=== PATIENT | female | born 1950 | race Caucasian/White ===

== ENCOUNTER → 2017-07-13 | Outpatient (CLI) | payer MEDICARE, OTHER | END | disposition home or self-care (01) | LOC: KCIC MRI 10:31 | DX: M48.061 Spinal stenosis, lumbar region without neurogenic claudication (principal); M51.26 Other intervertebral disc displacement, lumbar region | CPT/HCPCS: 72148 ==

== ENCOUNTER → 2017-12-24 | Outpatient (CLI) | payer MEDICARE, OTHER ==
--- NOTE | 2017-12-24 15:25 | RAD ---
CT CHEST WO CONTRAST dated 12/24/2017 10:56 AM Indication:..SHORTNESS OF BREATH, HX OF COPD
NO PRIORS. Comparison: No comparison is available. Technique: Contiguous axial imaging of the chest performed without the administration of intravenous contrast. One or more of the following individualized dose reduction techniques were utilized for this examination: 1. Automated exposure control 2. Adjustment of the mA and/or kV according to patient size 3. Use of iterative reconstruction technique Findings: Heart size within normal limits. No pericardial effusion. Scattered coronary calcifications. No mediastinal, hilar or axillary lymphadenopathy. Thyroid gland unremarkable. Central airways are patent. Mild diffuse bronchial wall thickening. There is mild emphysema. Minimal linear scar or atelectasis in the lingula and right middle lobe. No consolidation or pleural effusion. No pneumothorax. Linear density at the posterior lateral left base, likely scar or atelectasis. There are some vague groundglass densities along the bronchovascular bundles bilaterally. Limited images of the upper abdomen are unremarkable. No significant bony abnormality. Multilevel spondylosis. IMPRESSION: 1. Vague patchy groundglass opacities along the bronchovascular bundles both lungs, nonspecific. This could represent acute or subacute bronchial inflammatory process. 2. Mild emphysema. 3. Coronary artery calcifications. Electronically signed by: Estevan Frank MD (12/24/2017 3:22 PM) [id number]
== END | disposition home or self-care (01) ==
LOC: CT 10:41
PROVIDERS: ATTEND Internal Medicine Pulmonary Disease
DX: J43.8 Other emphysema (principal); I25.10 Atherosclerotic heart disease of native coronary artery without angina pectoris; M47.894 Other spondylosis, thoracic region
CPT/HCPCS: 71250

== ENCOUNTER → 2017-12-28 | Outpatient (CLI) | payer MEDICARE, OTHER ==
[~2017-12-28] MED LIST: ATOR20TA58 PO; ESCITALOPRAM OX10 MG PO; FLUT1BLS3 IH; LISI1TAB3 PO; PROAIR HFA8.5 GM INH
--- NOTE | 2017-12-29 11:03 | SLEEP ---
DATE OF STUDY: 12/28/2017 ATTENDING PHYSICIAN: Dr. Tra Sharif. REFERRING PHYSICIAN: Dr. Madden. The patient is a 67-year-old who weighs 210 pounds with a BMI of 36. The patient's Hubbard score was 11. The patient underwent sleep study at [facility]. During the night study, the patient spent 412 minutes in bed and slept for 330 minutes with a sleep efficiency of 80%. Sleep latency was 18 minutes with a REM latency of 118 minutes. Overall, sleep architecture showed normal stage 1 sleep, increased stage 2 sleep, normal slow wave and reduced REM sleep. During the night study, the patient had no obstructive apneas, no mixed or central apneas and 5 hypopneas. The patient's apnea hypopnea index was only 1 per hour, supine index 2 per hour, REM index of 11 per hour. EKG monitoring revealed normal sinus rhythm, average heart rate was 78 beats per minute, no sustained arrhythmias were observed. PLMS were seen at index of 5 per hour and 3 per hour caused EEG arousals. Nocturnal oximetry study revealed a mean oxygen saturation of 90%, the lowest of 84%, 93% of time oxygen saturation remained between 80% and 89%. This pattern was suggesting hypoventilation. Due to low AHI, the patient did not meet the split night criteria for CPAP initiation. IMPRESSION: 1. No clinically significant sleep disordered breathing. The patient's AHI for the entire night was 1 per hour. 2. Mild sustained nocturnal hypoxia suggesting hypoventilation. 3. No clinically significant periodic limb movements. RECOMMENDATIONS: 1. The patient did not meet the split night criteria for CPAP initiation due to very low AHI. 2. The patient would benefit from 1 liter of oxygen at nighttime. 3. If clinical suspicion for other disorders such as narcolepsy or idiopathic hypersomnia is high, then consider doing multiple sleep latency tests. 4. Weight loss is advised. 5. Avoid LPN CARE MANAGER depressants. 6. Caution regarding driving until the patient's hypersomnia is resolved. EDGAR MCCONNELL MD DR: BRUNILDA/zack JOB#: [id number] / [id number]
== END | disposition home or self-care (01) ==
LOC: SLPLAB 18:20
PROVIDERS: ATTEND Internal Medicine Pulmonary Disease
DX: G47.34 Idiopathic sleep related nonobstructive alveolar hypoventilation (principal)
CPT/HCPCS: 95810

== ENCOUNTER 2018-02-04 07:49 | Outpatient (CLI) | payer MEDICARE, OTHER ==
[~2018-02-04] VITALS: Ht 162.6 cm; Wt 98.9 kg
[2018-02-04] VITALS (11 sets, daily range): BP systolic 104–138; BP diastolic 53–70
[2018-02-04 08:20] LABS: HEMATOCRIT 40.1 % (36.0-47.0); RED BLOOD COUNT 4.23 x10^6/uL (3.50-5.40); RED CELL DISTRIBUTION WIDTH 12.8 % (11.5-14.5)
[2018-02-04 08:30] LABS: PROTHROMBIN TIME PATIENT 12.8 SEC (11.7-14.0)
[2018-02-04 08:41] LABS: CALCIUM 9.2 mg/dL (8.5-10.1); CREATININE 1.2 mg/dL (0.6-1.0); GFR 44.9
[2018-02-04] MEDS ORDERED: LIDOCAINE 1% PF 2 ML VIAL. ONE (10:48)
[2018-02-04] MEDS ORDERED: IODIXANOL 320 MG/ML 100 ML VIAL. ONE (10:48)
[2018-02-04] MEDS ORDERED: fentaNYL PF VIAL 100 MCG/2 ML VIAL ONE (10:53)
[2018-02-04] MEDS ORDERED: VERAPAMIL 5 MG/2 ML VIAL. ONE (10:53)
[2018-02-04] MEDS ORDERED: HEPARIN for IV BOLUS 10,000 UNIT/10 ML VIAL. ONE (10:53)
[2018-02-04] MEDS ORDERED: MIDAZOLAM HCL/PF 2 MG/2 ML VIAL. ONE (10:53)
[2018-02-04] MEDS ORDERED: NITROGLYCERIN 200 MCG/2 ML SYRINGE FOR CATH/VASC LAB. ONE (10:54)
[2018-02-04] MEDS ORDERED: VERAPAMIL 5 MG/2 ML VIAL. IART ONE (11:15)
[2018-02-04] MEDS ORDERED: MIDAZOLAM HCL/PF 2 MG/2 ML VIAL. IV ONE (11:15)
[2018-02-04] MEDS ORDERED: NITROGLYCERIN 200 MCG/2 ML SYRINGE FOR CATH/VASC LAB. IART ONE (11:15)
[2018-02-04] MEDS ORDERED: fentaNYL PF VIAL 100 MCG/2 ML VIAL IV ONE (11:15)
[2018-02-04] MEDS ORDERED: LIDOCAINE 1% PF 2 ML VIAL. INJ ONE (11:15)
[2018-02-04] MEDS ORDERED: IODIXANOL 320 MG/ML 100 ML VIAL. IART ONE (11:15)
[2018-02-04] MEDS ORDERED: HEPARIN for IV BOLUS 10,000 UNIT/10 ML VIAL. IART ONE (11:15)
--- NOTE | 2018-02-04 11:59 | CARD ---
MR#: [id number] Date of Study: 02/04/2018 Ordering Physician: STACIE ANDREWS, Referring Physician: STACIE ANDREWS Tech: RT Cassie (R) APPROVED REPORT Technologist: RT Cassie (R) Nurse: Prachi Malik RN Procedure(s) performed: Left heart catheterization, selective coronary angiography and left ventricul ography via right transradial approach Sedation Time: 25 Minutes INDICATION The indication(s) include : Dyspnea on exertion and positive stress test. PROCEDURE NARRATIVE After explaining the risks, benefits and alternative options, informed consent was obtained from josue ent. Patient was brought to the cardiac Lithograph Printer and right wrist was prepped and draped in the usual fashion after confirming a positive modified Sebastian's test. Arterial access was obtained in the righ t radial artery and a 6 Bruneian sheath was inserted. 6 Bruneian Sunil catheter was used to perform john ective angiography of the left and right coronary arteries. 6 Bruneian pigtail catheter was used to pe rform left ventriculography. Patient tolerated the procedure well. Hemostasis was achieved using TR band. There were no immediate complications. The following findings were noted. FINDINGS 1. Hemodynamics: Left ventricular end-diastolic pressure of 9 mmHg. No pullback gradient across the aortic valve. 2. Left ventriculography: Normal left ventricle systolic function with ejection fraction estimated at 60%. No significant mitral regurgitation seen. 3. Coronary angiography: a. The left main coronary artery arose from the left sinus of Valsalva, gave rise to the left anteri or descending, ramus intermedius and left circumflex arteries and did not show any significant stenos is. b. The left anterior descending artery did not show any significant stenosis. c. The left circumflex artery showed 30% stenosis in the ostial segment. d. The ramus intermedius artery did not show any significant stenosis. e. The right coronary artery was a large and dominant vessel arising from the right sinus of Valsalv a that showed 30% stenosis in the proximal segment. Conclusion 1. No significant coronary artery disease 2. Normal left ventricle systolic function with ejection fraction estimated at 60%. Recommendations Cardiac Risk Reduction Program Signed by : Stacie Andrews, Electronically Approved : 02/04/2018 11:58:31
[2018-02-04] MEDS ORDERED: IV 1/2 NORMAL SALINE 1,000 ML IV SCH (12:04)
--- NOTE | 2018-02-04 12:04 | PDOC ---
MODERATE SEDATION ASSESSMENT RISKS/ALTERNATIVES Risks/Alternatives Risks and alternatives of this type of sedation and procedure discussed with: RISK/ALTERNATIVES: Patient H & P ON CHART H & P H & P on chart and reviewed for co-morbid conditions and appropriate labs. H&P ON CHART: Yes STATUS PREG STATUS ASSESSED: N/A MEDS/ALLERGIES REVIEWED Meds/Allergies Reviewed Medications and Allergies including time and route of recently administered narcotics and sedatives. MEDS/ALLERGIES REVIEWED: Yes ASA RATING ASA RATING: II AIRWAY ASSESSMENT Airway Assessment Airway patency, oral function limitations, presence of caps, crowns, dentures, partials, and ability to extend neck assessed. AIRWAY ASSESSMENT: Yes MALLAMPATI SCORE MALLAMPATI SCORE: II PRE-SEDATION ASSESSMENT PRE-SEDATION ASSESSMENT: Yes STACIE LOPEZ MD Feb 04, 2018 12:04
== END 2018-02-04 15:00 | disposition home or self-care (01) ==
LOC: CCL 07:49
PROVIDERS: ATTEND Internal Medicine Cardiovascular Disease
DX: I25.10 Atherosclerotic heart disease of native coronary artery without angina pectoris (principal); Z79.899 Other long term (current) drug therapy; Z79.01 Long term (current) use of anticoagulants
CPT/HCPCS: 36415; 80048; 85027; 85610; 85730; 93458; 99152; 99153; C1769; C1892; J1644; J2250; J3010; J3490; Q9967

== ENCOUNTER → 2018-02-23 | Outpatient (CLI) | payer MEDICARE, OTHER ==
[2018-02-04 15:00] VITALS: BP 128/61
[~2018-02-23] MED LIST changes: +ALBU2.5V8 INH; -PROAIR HFA8.5 GM INH
--- NOTE | 2018-02-24 13:35 | RAD ---
MR#: [id number] Date of Study: 02/23/2018 Ordering Physician: STACIE LOPEZ, Referring Physician: STACIE LOPEZ, Tech: RADHA Mendez, RDMS, RTR APPROVED REPORT Lower Extremity Venous Study for DVT Patient Location: OUT-PATIENT Indications post ablation Findings The bilateral lower extremity deep veins were evaluated for thrombus with color Doppler, spectral and grayscale images. Technically difficult images. On the right the grayscale images of the common femoral, superficial femoral and popliteal veins do n ot demonstrate any evidence of thrombus and these veins appear to be compressible. The below-knee vei ns were not well visualized but grossly appear to be compressible. Spectral imaging and color Doppler do not reveal any evidence of obstruction to flow with normal respirophasic variation above the knee . Below the knee there is spontaneous flow noted. On the left, the grayscale images of the common femoral, superficial femoral and popliteal veins do n ot demonstrate any evidence of thrombus and these veins appear to be compressible. The below-knee vei ns again were not well visualized but grossly appear to be compressible. Spectral imaging and color D oppler do not reveal any evidence of obstruction to flow with normal respirophasic variation above th e knee. The below-knee veins demonstrate spontaneous flow. Bilateral greater saphenous veins are non-compressible till the distal calf level consistent with rec ent ablation. Critical Notification Critical Value: No <Conclusion> 1. Negative for DVT in the bilateral lower extremities 2. Successful bilateral GSV ablation. Signed by : Ajit Mims, Electronically Approved : 02/24/2018 13:33:17
== END | disposition home or self-care (01) ==
LOC: US 09:41
PROVIDERS: ATTEND Internal Medicine Cardiovascular Disease
DX: I87.2 Venous insufficiency (chronic) (peripheral) (principal); F17.210 Nicotine dependence, cigarettes, uncomplicated; Z98.890 Other specified postprocedural states
CPT/HCPCS: 93970

== ENCOUNTER → 2018-11-24 | Outpatient (CLI) | payer MEDICARE, OTHER ==
[2018-02-04 15:00] VITALS: BP 128/61
[~2018-11-24] MED LIST changes: +LISI1TAB23 PO; -LISI1TAB3 PO
--- NOTE | 2018-11-24 15:39 | KCIC ---
LUMBAR SPINE WO CONTRAST History: Low back pain. Radiculopathy. Technique: Multiplanar, multi sequential MR imaging was performed of the lumbar spine. Comparison: July 13, 2017 Findings: Grade 1 anterolisthesis L4 on L5, unchanged. Otherwise, normal alignment. Normal vertebral body height. No fracture. Right L5 pedicle bone marrow edema, similar compared to prior, may relate to degenerative changes or stress reaction. Conus terminates at the normal location. No evidence of nerve root clumping. L1-L2: Broad-based disc bulge with superimposed central disc protrusion. Mild facet arthropathy. No canal narrowing. Mild bilateral neural foraminal narrowing. L2-L3: Small posterior disc bulge. Mild facet arthropathy. No canal or neuroforaminal narrowing. L3-L4: Small posterior disc bulge. Moderate facet arthropathy. No canal narrowing. Mild right neuroforaminal narrowing. L4-L5: Anterolisthesis. Disc uncovering. Advanced facet arthropathy. Right synovial cyst measures 6 x 6 mm, new compared to prior. Findings contribute to moderate to severe canal narrowing. Synovial cyst contributes to increased nerve root compression with the central canal and right subarticular recess. Moderate bilateral neural foraminal narrowing. L5-S1: Small posterior disc bulge. Advanced facet arthropathy. No canal narrowing. Mild bilateral neural foraminal narrowing. Impression: 1. Moderate multilevel lumbar spondylosis most prominent L4-L5. 2. Grade 1 anterolisthesis L4 on L5 with new right synovial cyst contributing to moderate to severe canal narrowing, progressed within the region of the synovial cyst compared to prior. 3. Multilevel neural foraminal narrowing most prominent L1-L2 and L4-L5, unchanged. 4. Bone marrow edema within right L5 pedicle, may relate to degenerative changes or stress reaction, similar compared to prior. Electronically signed by: Vishal Quiroz DO (11/24/2018 3:36 PM) [facility]
== END | disposition home or self-care (01) ==
LOC: KCIC MRI 09:43
PROVIDERS: ATTEND Physician Assistant
DX: M51.17 Intervertebral disc disorders with radiculopathy, lumbosacral region (principal); M47.26 Other spondylosis with radiculopathy, lumbar region; M48.07 Spinal stenosis, lumbosacral region; M12.88 Other specific arthropathies, not elsewhere classified, other specified site; M71.38 Other bursal cyst, other site
CPT/HCPCS: 72148

== ENCOUNTER → 2018-12-06 | Outpatient (CLI) | payer MEDICARE, OTHER ==
[2018-02-04 15:00] VITALS: BP 128/61
--- NOTE | 2018-12-06 14:18 | RAD ---
Examination: CT CHEST WO CONTRAST History: Shortness of breath and COPD Comparison/Correlation: 12/16/2017 CT chest without contrast Findings: Axial images of the chest were obtained without contrast. Sagittal and coronal reformatted images were provided. The tracheobronchial tree is unremarkable. No pleural or pericardial effusion. No enlarged thoracic lymph nodes. Mild mosaic attenuation of the lung singh is noted. A punctate noncalcified nodule posterior left upper lobe and this is best seen on axial image 15 of series 3 measuring less than 0.3 cm diameter. No suspicious pulmonary nodule or mass. Mild emphysematous involvement of the lung singh noted. No dense infiltrate. Calcific density involving the right hepatic lobe posterior segment noted. Fatty infiltration of the liver is present. No acute bony process. Impression: Mild mosaic attenuation appearance of the lung singh is unchanged compared to the previous exam. No suspicious new infiltrate. No suspicious nodule. Mild emphysematous involvement of the lung singh. PQRS Compliance Statement: One or more of the following individualized dose reduction techniques were utilized for this examination: 1. Automated exposure control 2. Adjustment of the mA and/or kV according to patient size 3. Use of iterative reconstruction technique Electronically signed by: Mohsen Bennett MD (12/06/2018 2:15 PM) [facility]
== END | disposition home or self-care (01) ==
LOC: CT 09:11
PROVIDERS: ATTEND Internal Medicine Pulmonary Disease
DX: R06.02 Shortness of breath (principal); J44.9 Chronic obstructive pulmonary disease, unspecified; J98.4 Other disorders of lung; K76.0 Fatty (change of) liver, not elsewhere classified
CPT/HCPCS: 71250

== ENCOUNTER → 2019-01-02 | Outpatient (CLI) | payer MEDICARE ==
[2018-02-04 15:00] VITALS: BP 128/61
[~2019-01-02] MED LIST changes: +ACET500T68 PO; +CA C1TAB34 PO; +CETI10TA22 PO; +TRAM50TA PO
--- NOTE | 2019-01-02 15:27 | EKG ---
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
== END | disposition home or self-care (01) ==
LOC: SURGPAT 13:19
PROVIDERS: ATTEND Neurological Surgery
DX: Z01.818 Encounter for other preprocedural examination (principal); M48.061 Spinal stenosis, lumbar region without neurogenic claudication; M71.30 Other bursal cyst, unspecified site; Z88.5 Allergy status to narcotic agent
CPT/HCPCS: 36415; 87641; 93005

== ENCOUNTER 2019-01-12 08:21 | Inpatient (IN) | payer MEDICARE ==
--- NOTE | 2019-01-11 18:35 | HP ---
ADMIT DATE: 01/12/2019 DATE OF SURGERY: 01/12/2019 HISTORY OF PRESENT ILLNESS: The patient is a pleasant 68-year-old who has difficulty with low back pain and pain which radiates into her right hip and buttock. There is also right posterior thigh and leg pain. The problem has been present for about 6 weeks. She rates her pain as an 8/10 now and says it can become far worse. Sitting, standing and walking increase her pain. She takes tramadol on occasion. She has tried physical therapy, which she said she had similar symptoms last year and that was not helpful for her. PAST MEDICAL HISTORY: Arthritis, asthma, hypertension. PAST SURGICAL HISTORY: Vein surgery bilaterally, rods and screws in left leg, right knee surgery, hysterectomy. FAMILY HISTORY: Cancer, diabetes, heart disease, hypertension, headaches. SOCIAL HISTORY: Retired. Smokes 1 pack per day for 30 years. Drinks alcohol 1-2 times per year. ALLERGIES: CODEINE SULFATE. CURRENT MEDICATIONS: Tramadol, meloxicam, lisinopril, atorvastatin, calcium, albuterol, Ventolin HFA, Trelegy Ellipta, cetirizine, hydrochloride, vitamin D and Tylenol. REVIEW OF SYSTEMS: A 12-point review of systems was obtained and is noncontributory except for that mentioned above. PHYSICAL EXAMINATION: NEUROSURGERY EXAMINATION: GENERAL APPEARANCE: Alert, pleasant, in no acute distress. HEAD: Normocephalic and atraumatic. SKIN: Warm and dry. MUSCULOSKELETAL: Lumbar paraspinal muscle bulk is normal, restricted range of motion of the lumbar spine, [id number] tenderness of lower lumbar spine with palpation, normal range of motion of the lower extremities bilaterally. EXTREMITIES: No clubbing, cyanosis or edema. NEUROLOGIC: Alert and oriented x 3, normal recent and remote memory. Strength 5/5 in bilateral lower extremities, sensory was intact to light touch in bilateral lower extremities, reflexes are trace and symmetric in lower extremities bilaterally, positive straight leg raising on the right, negative straight leg raising on the left, antalgic gait favoring the right leg. IMAGING: I reviewed a lumbar MRI scan from 11/24/2018. On that study, there is grade 1 anterolisthesis of L4-L5. There is a right synovial cyst at that level, which is contributing to severe canal narrowing. ASSESSMENT/ PLAN: She has a synovial cyst and severe right lumbar radiculopathy. My feeling is that she should consider microsurgery on the right at L4-L5 to decompress the dura and nerve root, to deal with the stenosis as well as the synovial cyst. I did discuss this with her. I further explained that she may require further surgery in the future should her spondylolisthesis worsen. She understands. She would like to go ahead. We will make the arrangements. NEHA QUINONES MD DR: KISHORE/zack JOB#: [id number] / [id number] TED
[~2019-01-12] VITALS: Ht 162.6 cm; Wt 83.9 kg
[2019-01-12] VITALS (10 sets, daily range): BP systolic 86–134; BP diastolic 34–60
[~2019-01-12 08:21] MED LIST changes: +BACITRACIN 50,000 UNIT in IV NORMAL SALINE 1000ML BAG 1,000 ML IRR ONE; +BUPIVACAINE-EPI 0.5%-1:200000 MPF 30 ML VIAL. INJ ONE; +GELATIN SPONGE SIZE 100. ONE; +IV RINGERS,LACTATED 1000ML 1,000 ML IV SCH; +KETOROLAC 60 MG/2 ML VIAL. ONE; +LIDOCAINE 1% PF 2 ML VIAL. ID PRN; +MORPHINE SULFATE 2 MG/ML VIAL. IV PRN; +ONDANSETRON PF 4 MG/2 ML VIAL. IV PRN; +PROCHLORPERAZINE 10 MG/2 ML VIAL. IV PRN; +THROMBIN TOPICAL 20,000 UNIT SPRAY.SYRN KIT TP ONE; +fentaNYL PF VIAL 100 MCG/2 ML VIAL IV PRN
[2019-01-12] MEDS ORDERED: MIDAZOLAM HCL/PF 2 MG/2 ML VIAL. ONE ×2 (10:08→11:05)
[2019-01-12] MEDS ORDERED: REMIFENTANIL 2 MG VIAL. IV ONE (10:08)
[2019-01-12] MEDS ORDERED: fentaNYL PF VIAL 100 MCG/2 ML VIAL ONE (10:08)
[2019-01-12] MEDS ORDERED: PROPOFOL 20 ML IV ONE (10:08)
[2019-01-12] MEDS ORDERED: ROCURONIUM 50 MG/5 ML VIAL. ONE (10:08)
[2019-01-12] MEDS ORDERED: DEXAMETHASONE SOD PHOS 20 MG/5 ML VIAL. ONE (10:09)
[2019-01-12] MEDS ORDERED: LIDOCAINE 2% PF 5 ML VIAL. ONE (10:09)
[2019-01-12] MEDS ORDERED: ONDANSETRON PF 4 MG/2 ML VIAL. ONE (10:09)
[2019-01-12] MEDS ORDERED: PROPOFOL 50 ML IV ONE ×2 (10:10→13:06)
[2019-01-12] MEDS ORDERED: PHENYLEPHRINE 10 MG/ML VIAL. ONE (11:15)
[2019-01-12] MEDS ORDERED: NEOSTIGMINE METHYLSULFATE 5 MG/5 ML SYRINGE. ONE (11:43)
[2019-01-12] MEDS ORDERED: GLYCOPYRROLATE 1 MG/5 ML VIAL. ONE (11:43)
[2019-01-12] MEDS ORDERED: DESFLURANE 61 TO 120 MINUTES IH ONE (13:07)
[2019-01-12] MEDS: fentaNYL PF VIAL 100 MCG/2 ML VIAL IV PRN ×2 (13:51→14:02)
--- NOTE | 2019-01-12 14:20 | OP ---
DATE OF SURGERY: 01/12/2019 PREOPERATIVE DIAGNOSES: Lumbar spinal stenosis with synovial cyst L4-L5 with right lumbar radiculopathy. POSTOPERATIVE DIAGNOSIS: Lumbar spinal stenosis with synovial cyst L4-L5 with right lumbar radiculopathy. OPERATION PERFORMED: Right direct laminectomy L4-L5 with excision of synovial cyst and decompression of dura and nerve root. The operation was done with EMG monitoring, SSEP monitoring, fluoroscopy, microscopic dissection. SURGEON: Ion Quinones M.D. OPEN SHANK COVERER: JANET Arenas assisted with the surgery. She assisted with the exposure, the decompression as well as the closure. OPERATIVE INDICATIONS: The patient is a very pleasant 68-year-old who developed intractable back and right leg pain. On imaging studies, there was a small spondylolisthesis at L4-L5 as well as a synovial cyst behind the upper mid body of L5 on the right side. In addition, she had very severe lumbar spinal stenosis at that level. I recommended a decompression after she failed to improve with physical therapy. She understood the surgery, the risks, the technique and she wished to go ahead. DESCRIPTION OF PROCEDURE: Following general endotracheal anesthesia, the patient was positioned prone on the Deon frame. Her lumbar region was prepped and draped in standard fashion. TU hose and AV impulse boots were applied for DVT prophylaxis. The microscope was draped. Fluoroscopy was draped and brought into field. Monitoring was established. Ancef 2 grams was given less than 1 hour prior to initiation of the surgery. Using fluoroscopic guidance, incision was made from mid L4 to further inferiorly L5. I dissected down through skin and subcutaneous tissue, reflected the paraspinal muscles, placed a [place] microdisk retractor. I brought in the microscope. Using the high speed air drill, I burred down a very generous hemilaminotomy and I carried this inferiorly and tilted the patient away from me and drilled across the midline. I peeled back the thickened ligamentum flavum and worked from superiorly to inferiorly and found the synovial cyst, which was densely scarred to the underlying dura. I gently worked and freed this and then peeled it again from medial to lateral and worked quite far laterally. There was an inferior capsule of scar, which I peeled back away and I fully decompressed the dura at this point. I trimmed away the ligament. I fully exposed the dura. There were no disc problems. The stenosis was relieved by the extensive amount of bone decompression of the lamina and slightly above the disc space but the region became very well decompressed. The dura moved back nicely. Once the cyst was removed, then I irrigated copiously with antibiotic solution. Hemostasis was excellent throughout the operation. I did use small amounts of bone wax during the case as well as bipolar cautery. I then removed the retractor, I irrigated copiously, I obtained excellent hemostasis in the muscle and I closed the wound in layers with absorbable suture. The skin was closed with 4-0 subcuticular stitch. The operation went very well. ION QUINONES MD DR: KISHORE/zack JOB#: [id number] / [id number] TED
[2019-01-12] MEDS: HYDROmorphone 2 MG/ML VIAL IV PRN ×3 (14:21→14:53)
[2019-01-12] MEDS ORDERED: METH-38 PO (14:27)
[2019-01-12] MEDS ORDERED: DOCU-109 PO (14:27)
--- NOTE | 2019-01-12 14:29 | DISCH ---
DISCHARGE INSTRUCTIONS Condition on Discharge Condition on Discharge: Stable Activity After Discharge Activity Instructions for Disc: Activity as tolerated, Avoid exertion Other activity instructions: no driving for a week Lifting Instructions after Dis: No heavy lifting, No pulling or pushing, Do not lift >10 pounds Diet after Discharge Additional Diet Restrictions: resume home diet Wound Incision Care Wound/Incision Care: Ice to area for comfort, Keep wound/cast CDI, Change dressing Other wound/incision instructi: may remove dressing in 48 hours if dry then may shower, no soaking Contacting the after DC Call your doctor for: Concerns you may have Follow-Up Follow up with: Dr. Quinones's nurse in 2 weeks [phone] NEHA QUINONES MD Jan 12, 2019 14:29
[2019-01-12] MEDS ORDERED: ACETAMINOPHEN 500 MG TABLET PO PRN (14:45)
[2019-01-12] MEDS ORDERED: 0.9 % SODIUM CHLORIDE 10 ML DISP.SYRIN. IV PRN (14:45)
[2019-01-12] MEDS ORDERED: CALCIUM CARBONATE 500 MG TAB.CHEW PO PRN (14:45)
[2019-01-12] MEDS ORDERED: fentaNYL PF VIAL 100 MCG/2 ML VIAL IVP PRN (14:45)
[2019-01-12] MEDS ORDERED: MAG HYDROX/ALUMINUM HYD/SIMETH 30 ML ORAL.SUSP PO PRN (14:45)
[2019-01-12] MEDS ORDERED: ACETAMINOPHEN 325 MG TABLET. PO PRN (14:45)
[2019-01-12] MEDS ORDERED: ALBUTEROL SULFATE 2.5 MG/3 ML NEBU. INH PRN (14:45)
[2019-01-12] MEDS ORDERED: diphenhydrAMINE HCL 25 MG CAPSULE PO PRN (14:45)
[2019-01-12] MEDS ORDERED: MAGNESIUM HYDROXIDE 2,400 MG/30 ML ORAL.SUSP. PO PRN (14:45)
[2019-01-12] MEDS ORDERED: traMADol 50 MG TABLET PO PRN (14:45)
[2019-01-12] MEDS: LISINOPRIL 10 MG TABLET PO SCH (15:00)
--- NOTE | 2019-01-12 15:30 | NUR ---
Arrived to unit by bed from PACU. Awakens easily. Rates pain at "7" on pain scale 0-10. 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 Still has numbness on both arms and hands (had prior to surgery). O2 at 2l per n/c and sating at 93%. IVF's intact and infusing. TU's and BELLA's on bilaterally. Oriented to room and controls. Side rails up x's 2 with call light in reach. Significant other at bedside. Cont. monitor.
[2019-01-12] MEDS: POTASSIUM CL 20MEQ D5-0.45NACL 1,000 ML IV SCH (15:37)
[2019-01-12] MEDS ORDERED: FLU VAX QS 2019-20 (36MOS+)/PF 0.5 ML SYRINGE. VAX IM ONE (16:00)
[2019-01-12] MEDS: hydroCHLOROthiazide 12.5 MG CAPSULE PO SCH (16:02)
[2019-01-12] MEDS: CITALOPRAM 20 MG TABLET. PO SCH (16:03)
[2019-01-12] MEDS: CETIRIZINE HCL 10 MG TABLET. PO SCH (16:03)
[2019-01-12] MEDS ORDERED: ALBU2.5V5 (19:08)
[2019-01-12] MEDS: HYDROcodone/APAP 5/325MG 1 TAB TABLET PO PRN (20:14)
[2019-01-12] MEDS: DOCUSATE SODIUM 100 MG CAPSULE. PO SCH (20:14)
[2019-01-12] MEDS: ALBUTEROL SULFATE 2.5 MG/3 ML NEBU. INH SCH (20:45)
[2019-01-12] MEDS ORDERED: ATORVASTATIN CALCIUM 20 MG TABLET PO SCH (21:00)
[2019-01-13] MEDS: HYDROcodone/APAP 5/325MG 1 TAB TABLET PO PRN ×3 (02:35→11:47)
[2019-01-13 02:49] VITALS: BP 111/68
[2019-01-13] MEDS: POTASSIUM CL 20MEQ D5-0.45NACL 1,000 ML IV SCH (02:51)
[2019-01-13] MEDS: METHOCARBAMOL 750 MG TABLET PO PRN ×2 (05:01→11:48)
[2019-01-13] MEDS ORDERED: ALBUTEROL SULFATE 2.5 MG/3 ML NEBU. INH PRN (05:15)
--- NOTE | 2019-01-13 05:20 | NUR ---
Assisted to toilet, + void. Brief put on due to small urinary incontinence with coughing episodes. RT gave pt a prn nebulized treatment. Assisted to recliner. Cold pack placed behind back. Robaxin given po. Large rectangle of skin around the surgical dressing is splotchy red. Denies itch or pain.
[2019-01-13 06:31] VITALS: BP 98/43
[2019-01-13] MEDS: ALBUTEROL SULFATE 2.5 MG/3 ML NEBU. INH SCH ×2 (07:25→12:12)
[2019-01-13 08:05] VITALS: BP 107/53
[2019-01-13] MEDS: CITALOPRAM 20 MG TABLET. PO SCH (08:08)
[2019-01-13] MEDS: CETIRIZINE HCL 10 MG TABLET. PO SCH (08:09)
[2019-01-13] MEDS: DOCUSATE SODIUM 100 MG CAPSULE. PO SCH (08:09)
[2019-01-13] MEDS: LISINOPRIL 10 MG TABLET PO SCH (09:00)
[2019-01-13] MEDS ORDERED: CALCIUM CARB/VIT D3 500/200 TABLET. PO SCH (09:00)
[2019-01-13] MEDS: hydroCHLOROthiazide 12.5 MG CAPSULE PO SCH (09:00)
[2019-01-13] MEDS ORDERED: FLU VAX QS 2019-20 (36MOS+)/PF 0.5 ML SYRINGE. VAX IM ONE (09:00)
--- NOTE | 2019-01-13 11:00 | NUR ---
Ambulates to bathroom with steady gait with standby assist. BP and heart rate better this am. Still c/o pain at incision site. Pt return to bed without difficulty. Applied ice pack to lower back. Side rails up x's 2 with call light in reach. Cont. monitor.
[2019-01-13 11:25] VITALS: BP 110/55
[2019-01-13] MEDS ORDERED: HYDR-2761 PO (13:52)
--- NOTE | 2019-01-13 14:01 | DS ---
DATE OF DISCHARGE: 01/13/2019 DATE OF SURGERY: 01/12/2019 DISCHARGE DIAGNOSIS: Lumbar spinal stenosis with synovial cyst L4-L5 with right lumbar radiculopathy. OPERATION PERFORMED: Right direct laminectomy L4-L5 with excision of synovial cyst and decompression of dura and nerve root. HISTORY OF PRESENT ILLNESS: The patient is a pleasant 68-year-old, who developed intractable back and right leg pain. On imaging studies, there was a small spondylolisthesis at L4-L5 as well as synovial cyst behind the upper mid body of L5 on the right side. In addition, she had severe lumbar spinal stenosis at that level. I recommended decompression after she failed to improve with physical therapy. HOSPITAL COURSE: She is admitted to the floor postoperatively where she has done well. She has been up ambulating in the room and in the halls. Physical therapy was initiated and instruction was given to her regarding her activities. Her pain is well controlled with pain medication. She is in good condition to discharge home. DISCHARGE MEDICATIONS: She will resume her medications per the MRAD. DISCHARGE INSTRUCTIONS: She was instructed regarding incision care, activity restrictions and expectations for the next several weeks. She will follow up in our office in 2 weeks. She understands to call with any questions or concerns. NEHA QUINONES MD DR: KERI/zack JOB#: [id number] / [id number]
--- NOTE | 2019-01-13 14:30 | NUR ---
Discharge instructions and prescriptions given. Answered questions and concerns. Verbalized understanding. Gave some extra dressings and ice pack to take home. Pt discharged by w/c. Accompanied by significant other.
--- NOTE | 2019-01-17 10:07 | PATHOLOGY ---
[facility] Accession Number: [id number] . 01 Material submitted: . PART A: vertebral column - LUMBAR DECOMPRESSION PART B: vertebral column - SYNOVIAL CYST . 01 Clinical history: . Lumbar stenosis and synovial cyst. . 02 Diagnosis: A. "Lumbar decompression", decompression: - Scant intervertebral disc material, decalcified bone, articular cartilage, periosteum, fibroadipose connective tissue and skeletal muscle with reactive and degenerative changes. . B. "Synovial cyst", excision: - Decalcified bone, cartilage, and synovium with changes consistent with synovial cyst. (CLW:[facility]; 01/17/2019) [facility] 01/17/2019 0902 Local . 02 Electronically signed: . Thalia Hernández MD, Pathologist NPI- [id number] . 01 Gross description: . A. Received in formalin labeled "Alberto, Linette, lumbar decompression" is a 3.5 x 3.3 x 0.8 cm aggregate of pink-mendez friable soft tissue and scant bone. [employer] Teacher tissue is submitted in cassette A1 following decalcification. . B. Received in formalin labeled "Dominguez, Linette, synovial cyst" are two irregular fragments of mendez-pink soft tissue measuring in aggregate 2.1 x 2.0 x 0.5 cm. The tissue is serially sectioned and submitted entirely in cassette B1 following decalcification. ([facility] [place]; 01/12/2019) [facility] 01/12/2019 1847 Local . 02 Pathologist provided ICD-10: M51.36, M71.38 . 02 CPT . 891091, 219431, 153806, [id number] Specimen Comment: A courtesy copy of this report has been sent to [phone], [phone] Specimen Comment: [id number] Specimen Comment: Report sent to / DR BRITT Performed at: 01 [facility] [address] [id number] MD Chucho Acevedo MD Phone: [phone] Performed at: 02 [facility] [address] [id number] MD Dylon Maharaj MD Phone: [phone]
== END 2019-01-13 14:30 | disposition home or self-care (01) | DRG 520 ==
LOC: OPSVCIP 08:21 → EDSTATUS 11:00 → 4 SOUTHEST 15:31
PROVIDERS: ADMIT Neurological Surgery; ATTEND Neurological Surgery
PROC: 01NB0ZZ Release Lumbar Nerve, Open Approach (ICD-10-PCS; 2019-01-12)
PROC: 4A11X4G Monitoring of Peripheral Nervous Electrical Activity, Intraoperative, External Approach (ICD-10-PCS; 2019-01-12)
PROC: 00NY0ZZ Release Lumbar Spinal Cord, Open Approach (ICD-10-PCS; principal; 2019-01-12 11:00)
DX: M48.062 Spinal stenosis, lumbar region with neurogenic claudication (principal); M54.16 Radiculopathy, lumbar region; I10 Essential (primary) hypertension; J45.909 Unspecified asthma, uncomplicated; M43.16 Spondylolisthesis, lumbar region; M71.38 Other bursal cyst, other site; Z82.49 Family history of ischemic heart disease and other diseases of the circulatory system; Z83.3 Family history of diabetes mellitus; Z87.891 Personal history of nicotine dependence; Z90.710 Acquired absence of both cervix and uterus; M19.90 Unspecified osteoarthritis, unspecified site
CPT/HCPCS: 76000; 88304; 88311; 90471; 90686; 94640; 94760; A7015; J0696; J1100; J1170; J1885; J2001; J2250; J2405; J2704; J2710; J3010; J3490; J7030; J7120; J7613; 97116; 97530; G0378

== ENCOUNTER → 2019-02-15 | Outpatient (CLI) | payer MEDICARE, OTHER ==
[~2019-02-15] MED LIST changes: +ALBU2.5V5; -BACITRACIN 50,000 UNIT in IV NORMAL SALINE 1000ML BAG 1,000 ML IRR ONE; -BUPIVACAINE-EPI 0.5%-1:200000 MPF 30 ML VIAL. INJ ONE; +DOCU-109 PO; -GELATIN SPONGE SIZE 100. ONE; +HYDR-2761 PO; -IV RINGERS,LACTATED 1000ML 1,000 ML IV SCH; -KETOROLAC 60 MG/2 ML VIAL. ONE; -LIDOCAINE 1% PF 2 ML VIAL. ID PRN; +METH-38 PO; -MORPHINE SULFATE 2 MG/ML VIAL. IV PRN; -ONDANSETRON PF 4 MG/2 ML VIAL. IV PRN; -PROCHLORPERAZINE 10 MG/2 ML VIAL. IV PRN; -THROMBIN TOPICAL 20,000 UNIT SPRAY.SYRN KIT TP ONE; -fentaNYL PF VIAL 100 MCG/2 ML VIAL IV PRN
--- NOTE | 2019-02-15 15:17 | CARD ---
MR#: [id number] Date of Study: 02/15/2019 Ordering Physician: STACIE LOPEZ, Referring Physician: STACIE LOPEZ Tech: Vaishali Espinal RDCS APPROVED REPORT EXAM: Two-dimensional and M-mode echocardiogram with Doppler and color Doppler. Other Information Quality : Good INDICATION Exertional Dyspnea 2D DIMENSIONS RVDd2.7 (2.9-3.5cm)Left Atrium(2D)3.3 (1.6-4.0cm) IVSd0.9 (0.7-1.1cm)Aortic Root(2D)2.9 (2.0-3.7cm) LVDd4.9 (3.9-5.9cm)LVOT Diameter2.2 (1.8-2.4cm) PWd1.0 (0.7-1.1cm)LVDs2.7 (2.5-4.0cm) FS (%) 30.0 %SV83.0 ml LVEF(%)60.0 (>50%) Aortic Valve AoV Peak Axel.113.2cm/sAoV VTI19.6cm AO Peak GR.5.1mmHgLVOT Peak Axel.83.2cm/s AO Mean GR.3mmHgAVA (VMAX)2.85cm2 JOSHUA (VTI)2.90cm2 Mitral Valve MV E Mkqiqmia65.8cm/sMV DECEL HNTQ573fp MV A Zensllmz86.1cm/sE/A Ratio0.6 Tricuspid Valve TR P. Qoyoxtdr883wc/sRAP VBYBUWTE1okDa TR Peak Gr.20itMiANKO03egDp Pulmonary Vein S1 Srkvyvoq29.6cm/sD2 Qeyxusxf84.3cm/s LEFT VENTRICLE The left ventricle is normal size. There is normal left ventricular wall thickness. The left ventricu lar systolic function is normal. The Ejection Fraction is 55-60%. There is normal LV segmental wall m otion. Transmitral Doppler flow pattern is Grade I-abnormal relaxation pattern. RIGHT VENTRICLE The right ventricle is normal size. The right ventricular systolic function is normal. ATRIA The left atrium size is normal. The right atrium size is normal. The interatrial septum is intact wit h no evidence for an atrial septal defect or patent foramen ovale as noted on 2-D or Doppler imaging. AORTIC VALVE The aortic valve is calcified but opens well. Doppler and Color Flow revealed no significant aortic r egurgitation. There is no significant aortic valvular stenosis. MITRAL VALVE The mitral valve is calcified but opens well. There is no evidence of mitral valve prolapse. There is no mitral valve stenosis. Doppler and Color Flow revealed no mitral valve regurgitation noted. TRICUSPID VALVE The tricuspid valve is normal in structure and function. Doppler and Color Flow revealed trace to mil d tricuspid regurgitation. The PA pressure was estimated at 26 mmHg. There is no tricuspid valve sten osis. PULMONIC VALVE The pulmonic valve is not well visualized. Doppler and Color Flow revealed mild pulmonic valvular reg urgitation. There is no pulmonic valvular stenosis. GREAT VESSELS The aortic root is normal in size. The ascending aorta is normal in size. The IVC is normal in size a nd collapses >50% with inspiration. PERICARDIAL EFFUSION There is no evidence of significant pericardial effusion. Critical Notification Critical Value: No <Conclusion> The left ventricular systolic function is normal. The Ejection Fraction is 55-60%. There is normal LV segmental wall motion. Transmitral Doppler flow pattern is Grade I-abnormal relaxation pattern. Trace to mild tricuspid regurgitation. The PA pressure was estimated at 26 mmHg. There is no evidence of significant pericardial effusion. Signed by : Stacie Lopez, Electronically Approved : 02/15/2019 15:17:25
== END | disposition home or self-care (01) ==
LOC: ECHO 13:38
PROVIDERS: ATTEND Internal Medicine Cardiovascular Disease
DX: I08.8 Other rheumatic multiple valve diseases (principal)
CPT/HCPCS: 93306

== ENCOUNTER → 2020-02-21 | Outpatient (CLI) | payer MEDICARE, OTHER ==
[~2020-02-21] MED LIST changes: -CETI10TA22 PO; +CETI10TA74 PO
--- NOTE | 2020-02-21 18:16 | CARD ---
MR#: [id number] Date of Study: 02/21/2020 Ordering Physician: STACIE LOPEZ, Referring Physician: STACIE LOPEZ Tech: Vaishali Espinal RDCS APPROVED REPORT EXAM: Two-dimensional and M-mode echocardiogram with Doppler and color Doppler. Other Information Quality : Good INDICATION Exertional Dyspnea 2D DIMENSIONS RVDd2.6 (2.9-3.5cm)Left Atrium(2D)3.1 (1.6-4.0cm) IVSd0.9 (0.7-1.1cm)Aortic Root(2D)2.7 (2.0-3.7cm) LVDd5.6 (3.9-5.9cm)LVOT Diameter2.3 (1.8-2.4cm) PWd0.9 (0.7-1.1cm)LVDs4.2 (2.5-4.0cm) FS (%) 24.5 %SV72.7 ml Aortic Valve AoV Peak Axel.131.4cm/sAoV VTI24.8cm AO Peak GR.6.9mmHgLVOT Peak Axel.107.2cm/s AO Mean GR.4mmHgAVA (VMAX)3.52cm2 JOSHUA (VTI)3.20cm2 Mitral Valve MV E Akrqlczj46.1cm/sMV DECEL THFK374iz MV A Tzfypuut86.8cm/sE/A Ratio0.7 Tricuspid Valve TR P. Kwndagbh779sr/sRAP ZKRUWEPQ1wkQi TR Peak Gr.68dtNdLBPV73jsEx Pulmonary Vein S1 Yydhbsao23.1cm/sD2 Fgngenrk51.9cm/s LEFT VENTRICLE The left ventricle is normal size. There is normal left ventricular wall thickness. Left ventricle sy stolic function is low normal. The Ejection Fraction is 50-55%. There is mild hypokinesis in the mid- anteroseptal and apical septal zayas. Transmitral Doppler flow pattern is Grade I-abnormal relaxation pattern. RIGHT VENTRICLE The right ventricle is normal size. The right ventricular systolic function is normal. ATRIA The left atrium size is normal. The right atrium size is normal. The interatrial septum is intact wit h no evidence for an atrial septal defect or patent foramen ovale as noted on 2-D or Doppler imaging. AORTIC VALVE The aortic valve is normal in structure and function. Doppler and Color Flow revealed trace aortic re gurgitation. There is no significant aortic valvular stenosis. MITRAL VALVE The mitral valve is calcified but opens well. There is no evidence of mitral valve prolapse. There is no mitral valve stenosis. Doppler and Color-flow revealed trace mitral regurgitation. TRICUSPID VALVE The tricuspid valve is normal in structure and function. Doppler and Color Flow revealed trace to mil d tricuspid regurgitation. The PA pressure was estimated at 26 mmHg. There is no tricuspid valve sten osis. PULMONIC VALVE The pulmonic valve is not well visualized. Doppler and Color Flow revealed no pulmonic valvular regur gitation. There is no pulmonic valvular stenosis. GREAT VESSELS The aortic root is normal in size. The ascending aorta is normal in size. The IVC is normal in size a nd collapses >50% with inspiration. PERICARDIAL EFFUSION There is no evidence of significant pericardial effusion. Critical Notification Critical Value: No <Conclusion> The left ventricle is normal size. Left ventricle systolic function is low normal. The Ejection Fraction is 50-55%. There is mild hypokinesis in the mid-anteroseptal and apical septal zayas. Doppler and Color Flow revealed trace aortic regurgitation. There is no significant aortic valvular stenosis. Doppler and Color-flow revealed trace mitral regurgitation. Doppler and Color Flow revealed trace to mild tricuspid regurgitation. The PA pressure was estimated at 26 mmHg. Signed by : Jann Enamorado MD Electronically Approved : 02/21/2020 18:16:22
== END ==
LOC: ECHO 07:46
PROVIDERS: ATTEND Internal Medicine Cardiovascular Disease
DX: I08.1 Rheumatic disorders of both mitral and tricuspid valves (principal); I10 Essential (primary) hypertension
CPT/HCPCS: 93306

== ENCOUNTER → 2020-04-05 | Outpatient (CLI) | payer MEDICARE, OTHER ==
--- NOTE | 2020-04-05 16:54 | RAD ---
EXAM: CT CHEST WITHOUT CONTRAST HISTORY: COPD COMPARISON: CT chest 12/06/2018 TECHNIQUE: Helical CT of the chest performed without contrast. Coronal and sagittal reformats were o btained. One or more of the following individualized dose reduction techniques were utilized for this examinat ion: 1. Automated exposure control 2. Adjustment of the mA and/or kV according to patient size 3. Use of iterative reconstruction technique. FINDINGS: Thyroid gland and thoracic inlet: Unremarkable. Heart and great vessels: The heart is normal in size. No pericardial effusion. There are coronary art albert calcifications. Thoracic aorta is normal in caliber with calcified atherosclerosis. Mediastinum and nisreen: No lymphadenopathy. Lungs and pleura: There is very mild paraseptal and centrilobular emphysema in the lung apices. Mild airway wall thickening. There is a new 4 mm pulmonary nodule in the posterior right lower lobe (image 26 axial series). An adjacent 4 mm pulmonary nodule in the superior segment right lower lobe is unch anged from 2018 (image 24, series 3) No pleural effusion. Chest wall and axillae: No axillary lymphadenopathy. Upper abdomen: Unremarkable. Bones: Bones IMPRESSION: 1. Unchanged mild emphysema. 2. New 4 mm pulmonary nodule in the right lower lobe. Recommend 6 month follow-up CT to ensure stabil ity. Electronically signed by: Roseanna Arriaga MD (04/05/2020 4:51 PM) [id number]
== END ==
LOC: CT 10:02
PROVIDERS: ATTEND Internal Medicine Pulmonary Disease
DX: J43.9 Emphysema, unspecified (principal); R91.1 Solitary pulmonary nodule
CPT/HCPCS: 71250

== ENCOUNTER → 2020-10-28 | Outpatient (CLI) | payer MEDICARE, OTHER ==
--- NOTE | 2020-10-28 09:42 | RAD ---
EXAM: Chest CT without intravenous contrast. HISTORY: Pulmonary nodule. TECHNIQUE: Computed tomographic images of the chest were obtained without contrast. Multiplanar refor matting was performed. *One or more of the following individualized dose reduction techniques were utilized for this examina tion: 1. Automated exposure control. 2. Adjustment of the mA and/or kV according to patient size. 3. Use of iterative reconstruction technique. COMPARISON: 04/05/2020 and 12/06/2018. FINDINGS: The heart is normal in size. There is calcified atherosclerotic plaque involving the aorta and coronary arteries. There is no pathologically enlarged mediastinal or hilar lymph node. There is no pneumothorax or pleural effusion. There is mild pulmonary emphysema with biapical predominant subpleural bleb formation. There has been interval increase in an irregular nodular opacity within the superior segment of the right lower lob e measuring 1.5 cm in maximum dimension. There is also been interval increase in adjacent 4 mm nodule s within the anterior right upper lobe (series 8, image 145). There has been interval increase in a 5 mm nodule within the anterior right upper lobe (series 8, image 168). There are few faint groundglass opacities within both lungs which are likely postinfectious or postin flammatory. There are few tiny calcified granulomas. There is slight benign nodular thickening of the tsering of the bilateral adrenal glands. There is a benign calcification within the right hepatic lobe. There is a tiny splenule adjacent to an otherwise unremarkable spleen. There are degenerative change s involving the spine and both shoulders. There is no acute or suspicious osseous lesion. IMPRESSION: 1. Increase in an irregular nodular opacity within the superior segment of the right lower lobe measu ring 1.5 cm and additional smaller nodules within the right lower lobe measuring up to 5 mm. The diff erential includes neoplastic as well as infectious etiologies. The largest lesion is within limits in size for assessment with PET/CT. 2. Pulmonary emphysema. Electronically signed by: Gloria Valdez MD (10/28/2020 9:40 AM) [id number]
== END ==
LOC: CT 10:12
PROVIDERS: ATTEND Internal Medicine Critical Care Medicine
DX: R91.8 Other nonspecific abnormal finding of lung field (principal); J43.9 Emphysema, unspecified; J84.10 Pulmonary fibrosis, unspecified; I25.10 Atherosclerotic heart disease of native coronary artery without angina pectoris; I70.0 Atherosclerosis of aorta
CPT/HCPCS: 71250